=== PATIENT | male | born 1985 | race Caucasian/White ===

== ENCOUNTER 2017-05-30 12:03 | Emergency (ER) | payer OTHER ==
[~2017-05-30] VITALS: Ht 182.9 cm; Wt 114.5 kg
[2017-05-30] MEDS ORDERED: LOSA50TA6 PO (12:49)
[2017-05-30] MEDS ORDERED: ASPIRIN 81 MG TABLET CHEW ONE (12:55)
[2017-05-30] MEDS ORDERED: LORazepam 2 MG/ML, 1ML ONE (12:56)
[2017-05-30] MEDS ORDERED: ASPIRIN 81 MG TABLET CHEW PO ONE (13:00)
[2017-05-30] MEDS ORDERED: SODIUM CHLORIDE FLUSH 10ML SYR IVF ONE (13:00)
[2017-05-30] MEDS ORDERED: LORazepam 2 MG/ML, 1ML IVPush ONE (13:00)
[2017-05-30 13:01] VITALS: BP 133/79
[2017-05-30 13:24] LABS: BASOPHILS # (AUTO) 0.04 x10^3/uL (0-0.1); BASOPHILS % (AUTO) 1 % (0-1); EOSINOPHILS # (AUTO) 0.17 x10^3/uL (0-0.4); EOSINOPHILS % (AUTO) 3 % (1-7); LYMPHOCYTES # (AUTO) 2.43 x10^3/uL (1-3.4); LYMPHOCYTES % (AUTO) 46 % (22-44); MD NO; MEAN CORPUSCULAR HEMOGLOBIN 30.8 pg (27.5-34.5); MEAN CORPUSCULAR HGB CONC 34.2 g/dL (33.2-36.2); MEAN CORPUSCULAR VOLUME 89.8 fL (81-97); MEAN PLATELET VOLUME 8.6 fL (7.4-10.4); MONOCYTES # (AUTO) 0.48 x10^3/uL (0.2-0.8); MONOCYTES % (AUTO) 9 % (2-9); NEUTROPHILS % (AUTO) 41 % (42-75); PLATELET COUNT 287 x10^3/uL (130-400); RED BLOOD COUNT 5.22 x10^6/uL (4.38-5.82); RED CELL DISTRIBUTION WIDTH 12.1 % (9.4-14.8)
[2017-05-30 13:34] LABS: ANION GAP 10 mmol/L (5-15); CALCIUM 8.7 mg/dL (8.5-10.1); CHLORIDE 104 mmol/L (98-107); CREATININE 0.95 mg/dL (0.7-1.3)
[2017-05-30 13:38] LABS: TROPONIN I < 0.015 ng/mL (0.000-0.045)
== END 2017-05-30 15:09 | disposition home or self-care (01) ==
LOC: ED 14:23
DX: R07.89 Other chest pain (principal); I10 Essential (primary) hypertension; Z88.1 Allergy status to other antibiotic agents
CPT/HCPCS: 36415; 71045; 80048; 82040; 83880; 84484; 85025; 93005; 96374; 99285; J2060